=== PATIENT | male | born 1985 | race Caucasian/White ===

== ENCOUNTER → 2022-06-27 | Outpatient (CLI) | payer BC ==
--- NOTE | 2022-06-27 16:07 | CA ---
Transthoracic Echo Report Name: Chu Fitzgerald Age: 36 Gender: M : 1985 Exam Date: 06/27/2022 12:53 Exam Location: [facility] Ht (in): 63 Wt (lb): 186 Ordering Physician: Yuval Narayanan MD Attending/Referring Phys: [id number], Oracio Car Salter Vane Nazario, CHINEDU Procedure CPT: Indications: R00.0 TACHYCARDIA, UNSPECIFIED Cardiac Hx: FAM hx Technical Quality: Good Contrast 1: Total Dose (mL): Contrast 2: Total Dose (mL): MEASUREMENTS (Male / Female) Normal Values 2D ECHO LV Diastolic Diameter PLAX 5.1 cm 4.2 - 5.9 / 3.9 - 5.3 cm LV Systolic Diameter PLAX 3.7 cm IVS Diastolic Thickness 1.3 cm 0.6 - 1.0 / 0.6 - 0.9 cm LVPW Diastolic Thickness 1.4 cm 0.6 - 1.0 / 0.6 - 0.9 cm LV Relative Wall Thickness 0.5 RV Internal Dim ED PLAX 3.0 cm LA Systolic Diameter LX 3.8 cm 3.0 - 4.0 / 2.7 - 3.8 cm LV Diastolic Volume MOD 4C 100.5 cm??? LV Systolic Volume MOD 4C 51.8 cm??? LV Ejection Fraction MOD 4C 48.4 % LV Diastolic Length 4C 8.4 cm LV Systolic Length 4C 6.9 cm LV Diastolic Volume MOD 2C 77.5 cm??? LV Systolic Volume MOD 2C 46.2 cm??? LV Ejection Fraction MOD 2C 40.4 % LV Diastolic Length 2C 7.8 cm LV Systolic Length 2C 6.6 cm LA Volume 48.3 cm??? 18 - 58 / 22 - 52 cm??? M-MODE Aortic Root Diameter MM 3.1 cm MV E Point Septal Separation 1.0 cm AV Cusp Separation MM 2.3 cm DOPPLER AV Peak Velocity 138.3 cm/s AV Peak Gradient 7.7 mmHg MV Area PHT 3.2 cm??? Mitral E Point Velocity 73.9 cm/s Mitral A Point Velocity 89.6 cm/s Mitral E to A Ratio 0.8 MV Deceleration Time 233.9 ms MV E' Velocity 8.1 cm/s Mitral E to MV E' Ratio 9.1 TR Peak Velocity 246.5 cm/s TR Peak Gradient 24.3 mmHg Right Ventricular Systolic Press 28.6 mmHg FINDINGS Left Ventricle Left ventricular ejection fraction is estimated at 45 %. Left ventricular cavity size normal.Mild concentric left ventricular hypertrophy. Mildly reduced global left ventricular systolic function. Right Ventricle Normal right ventricular size and function. Right ventricular systolic pressure within normal limits. Right Atrium Normal right atrial size. Left Atrium Normal left atrial size. Mitral Valve Structurally normal mitral valve. Trace to mild mitral regurgitation. Aortic Valve Trileaflet aortic valve. No aortic valve stenosis or regurgitation. Tricuspid Valve Structurally normal tricuspid valve. Mild tricuspid regurgitation. Pulmonic Valve Structurally normal pulmonic valve. No pulmonic regurgitation. Pericardium Normal pericardium. No pericardial effusion. Aorta Normal size aortic root and proximal ascending aorta. CONCLUSIONS Reduced LV systolic function, ejection fraction 45% Previewed by: Dr. Aldair Suarez MD (Electronically Signed) Final Date: 27 June 2022 16:06
== END | disposition home or self-care (01) ==
LOC: RADECHMAIN 12:33
PROVIDERS: ATTEND Family Medicine
DX: R00.0 Tachycardia, unspecified (principal)
CPT/HCPCS: 93306

== ENCOUNTER → 2023-01-11 | Outpatient (CLI) | payer BC ==
--- NOTE | 2023-01-12 13:44 | MR ---
EXAMINATION TYPE: MR lumbar spine wo con DATE OF EXAM: 01/11/2023 COMPARISON: HISTORY: Low back pain into left side CONTRAST: 0 mL intravenous Gadavist. TECHNIQUE: Multiplanar, multisequence images of the lumbar spine were acquired. FINDINGS: Cord terminates at the L1 level. There is some disc desiccation L2-L3. Remaining discs have normal hydration. Disc heights are preserv ed. Vertebral body heights are preserved. Superior endplate Schmorl's node is present L3. Tiny Schmor l's node may be present in the superior endplate of L5. No significant disc bulging or focal disc herniation is evident. No spinal canal stenosis or neural f oraminal stenosis is evident. IMPRESSION: 1. Disc desiccation L2-L3. 2. Schmorl's node formation noted L3 and possibly L5.
== END | disposition home or self-care (01) ==
LOC: RADMRIMAIN 10:11
PROVIDERS: ATTEND Family Medicine
DX: M51.46 Schmorl's nodes, lumbar region (principal); M51.36 Other intervertebral disc degeneration, lumbar region
CPT/HCPCS: 72148

== ENCOUNTER → 2023-12-15 | Outpatient (CLI) | payer BC ==
--- NOTE | 2023-12-15 14:56 | CT ---
CT right ankle without contrast HISTORY: Contusion right leg. COMPARISON: None TECHNIQUE: Multiple axial images are obtained to the right ankle without contrast. FINDINGS: The osseous structures are intact and there is no fracture, dislocation or focal intraosseous abnorma lity. The ankle mortise is intact. There is mild focal soft tissue edema in the distal medial third o f the leg. IMPRESSION: No osseous or intra-articular abnormality. Soft tissue abnormality suspected above. No radiopaque for eign body. [facility], Workstation: [id number] 12/15/2023 2:54 PM
== END | disposition home or self-care (01) ==
LOC: RADCTMAIN 14:04
PROVIDERS: ATTEND Family Medicine
DX: S80.11XD Contusion of right lower leg, subsequent encounter

== ENCOUNTER → 2024-06-02 | Outpatient (CLI) | payer BC ==
--- NOTE | 2024-06-03 16:12 | MR ---
EXAMINATION TYPE: MR shoulder LT wo con DATE OF EXAM: 06/02/2024 8:27 PM COMPARISON: None. CLINICAL INDICATION: Male, 38 years old with history of M25.512; PHH, Left shoulder pain and numbness , Lt hand turns red and difficult to rotate TECHNIQUE: Multi planar, multi sequence imaging was performed of the shoulder including: Axial and coronal erin n density fat-saturated sequences, T2 fat-saturated sagittal sequence, and T1-weighted imaging. No G adolinium was given. Left shoulder pain and numbness, Lt hand turns red and difficult to rotate FINDINGS: Supraspinatus tendon: Increased signal within the tendon near its insertion. Infraspinatus tendon: Intact Subscapularis tendon: Intact Teres minor tendon: Intact Long head biceps tendon: Intact, appropriately positioned within the bicipital groove. Normal ins ertion at the bicipital anchor. Acromioclavicular joint: Normal joint space and alignment. Normal subacromial space. No effusio n. Glenohumeral joint: Normal joint space and alignment. Normal articular cartilage. No effusion. Glenoid labrum: Increased signal within the labrum extending anterior to posterior superiorly. Labral cyst in the posterior aspect of the upper labrum compatible with sequela of known SLAP tear. Muscle volume: Normal. Bone marrow: Cystic change in the humeral head and insertion of the rotator cuff. Soft tissues: Unremarkable. Joint/bursal fluid: None IMPRESSION: 1. Superior labral SLAP tear 2. Supraspinatus and subscapularis insertional tendinosis. [facility], , 06/03/2024 4:09 PM
== END | disposition home or self-care (01) ==
LOC: RADMRIMAIN 20:15
PROVIDERS: ATTEND Family Medicine
DX: M25.512 Pain in left shoulder (principal); M67.814 Other specified disorders of tendon, left shoulder

== ENCOUNTER → 2024-08-20 | Outpatient (CLI) | payer BC ==
--- NOTE | 2024-08-20 09:27 | XR ---
EXAMINATION TYPE: XR chest 2V DATE OF EXAM: 08/20/2024 9:23 AM COMPARISON: None. CLINICAL INDICATION: Male, 38 years old with history of Z01.818 ENCOUNTER FOR OTHER PREPROCEDURAL EXA MINATION, TECHNIQUE: XR chest 2V view(s) obtained. FINDINGS: The heart size is normal. The pulmonary vasculature is normal. The lungs are clear. IMPRESSION: 1. No acute pulmonary process. [facility], , 08/20/2024 9:25 AM
[2024-08-20 09:34] LABS: Prothrombin Time 10.6 sec (10.0-12.5)
[2024-08-20 15:38] LABS: BUN/Creat Ratio 9.33 Ratio (12.00-20.00); Basophils # (A) 0.08 X 10*3/uL (0.00-0.10); Basophils % (A) 0.9 %; Blood Urea Nitrogen 8.4 mg/dL (9.0-27.0); Calcium 9.4 mg/dL (8.7-10.3); Carbon Dioxide 25.2 mmol/L (21.6-31.8); Chloride 105 mmol/L (96-109); Eosinophils # (A) 0.27 X 10*3/uL (0.04-0.35); Eosinophils % (A) 3.1 %; Glucose 105 mg/dL (70-110); HCT 48.5 % (39.6-50.0); Lymphocytes # (A) 2.63 X 10*3/uL (0.90-5.00); Lymphocytes % (A) 30.2 %; MCH 27.9 pg (27.0-32.0); MCV 84.5 FL (80.0-97.0); Mean Platelet Volume 11.4 FL (9.5-12.2); Monocytes # (A) 0.85 X 10*3/uL (0.20-1.00); Monocytes % (A) 9.8 %; NRBC Per 100 WBC 0 X 10*3/uL (0.00-0.01); Neutrophils # (A) 4.84 X 10*3/uL (1.80-7.70); Neutrophils % (A) 55.5 %; Platelet Count 265 X 10*3/uL (140-440); RBC 5.74 X 10*6/uL (4.40-5.60); RDW 12.9 % (11.5-14.5); Sodium 143 mmol/L (135-145); WBC 8.71 X 10*3/uL (4.50-10.00)
[2024-08-20 16:05] LABS: Appearance,Urine Turbid (Clear); Bilirubin,Urine Negative (Negative); Blood,Urine Negative (Negative); Color,Urine Yellow (Yellow); Ketones,Urine Negative (Negative); Nitrite,Urine Negative (Negative); PH, Urine 5.5; Specific Gravity,Urine 1.023 (1.001-1.030); Urobilinogen,Urine 0.2 E.U./DL
[2024-08-20 16:11] LABS: Bacteria,Urine None Seen (None Seen)
== END | disposition home or self-care (01) ==
LOC: LABPAT 08:54
PROVIDERS: ATTEND Orthopaedic Surgery Orthopaedic Surgery of the Spine
DX: Z01.812 Encounter for preprocedural laboratory examination (principal); Z22.322 Carrier or suspected carrier of Methicillin resistant Staphylococcus aureus; M48.02 Spinal stenosis, cervical region
CPT/HCPCS: 71046; 80048; 81001; 85025; 85610; 85730; 86850; 86900; 86901; 87070

== ENCOUNTER 2024-09-01 08:56 | Inpatient (IN) | payer BC ==
[2024-08-26 14:25] VITALS: BMI 40.2
[2024-09-01] MEDS: IV FLUID CONTINUATION 1,000 ML IV ONE (09:25)
[2024-09-01 10:04] LABS: Glucose,Whole Blood 103 mg/dL (70-110)
[2024-09-01] MEDS: MIDAZOLAM 2 MG/2 ML VIAL IV ONE (10:15)
[2024-09-01] MEDS: ONDANSETRON 4 MG/2 ML VIAL IVP ONE (10:19)
[2024-09-01] MEDS ORDERED: KETAMINE HCL IN 0.9 % NACL 50 MG/5 ML SYRINGE ONE (12:19)
[2024-09-01] MEDS ORDERED: ROCURONIUM 10 MG/ML (5 ML VIAL) IV ONE (12:19)
[2024-09-01] MEDS ORDERED: GLYCOPYRROLATE 0.2 MG/ML 2 ML VIAL ONE (12:19)
[2024-09-01] MEDS ORDERED: VASOPRESSIN 20 UNIT/ML 1 ML VIAL ONE (12:19)
[2024-09-01] MEDS ORDERED: NEOSTIGMINE 1 MG/ML 10 ML VIAL ONE (12:19)
[2024-09-01] MEDS ORDERED: PHENYLEPHRINE-0.9% NACL SYG 1,000 MCG/10 ML SYRINGE ONE (12:19)
[2024-09-01] MEDS ORDERED: MIDAZOLAM 2 MG/2 ML VIAL ONE (12:19)
[2024-09-01] MEDS ORDERED: PROPOFOL 10 MG/ML 20 ML VIAL IV ONE (12:19)
[2024-09-01] MEDS ORDERED: fentaNYL (PF) 50 MCG/ML 2 ML AMP ONE (12:19)
[2024-09-01] MEDS: ceFAZolin 1,000 MG in SODIUM CHLORIDE 0.9% IRRIGATIO 1,000 ML IRRIGATION PRN (12:24)
[2024-09-01] MEDS: ceFAZolin 2 GM in DEXTROSE 5% IN WATER 50 ML IVPB PRN (12:24)
[2024-09-01] MEDS: BUPIVACAINE (PF) 0.5% 30 ML VIAL SQ ONE (12:57)
[2024-09-01] MEDS: LIDOCAINE 2%-EPI 1:100,000 20 ML VIAL SQ ONE (12:57)
[2024-09-01] MEDS: THROMBIN (BOVINE) 5,000 UNIT VIAL TOPICAL ONE (13:09)
--- NOTE | 2024-09-01 13:50 | XR ---
EXAMINATION TYPE: XR cervical spine 1V DATE OF EXAM: 09/01/2024 1:28 PM COMPARISON: None CLINICAL INDICATION: Male, 38 years old with history of NEEDLE PLACEMENT; PHH, pain TECHNIQUE: XR cervical spine 1V, (1-2) views of the cervical spine FINDINGS: Needle placed at C5-C6. Endotracheal tube placement and the airway. The osseous structures show normal alignment without evidence of an acute fracture. There are osteoph ytes noted throughout the cervical spine on the anterior and lateral aspects of the vertebral bodies. The intervertebral disk spaces are narrowed at multiple levels Pedicles are intact. Soft tissues ar e within normal limits. The odontoid appears intact. IMPRESSION: 1. No fracture or dislocation. 2. Needle placed at C5-C6. [facility], , 09/01/2024 1:48 PM
[2024-09-01] MEDS: LACTATED RINGERS 1,000 ML IV ONE (14:30)
[2024-09-01] MEDS ORDERED: HYDROmorphone 0.5 MG/0.5 ML SYRINGE IVP PRN (15:10)
[2024-09-01] MEDS ORDERED: CYCLOBENZAPRINE 10 MG TAB PO PRN (15:10)
[2024-09-01] MEDS ORDERED: HYDROcodone/APAP 5-325MG 1 EACH TAB PO PRN (15:10)
[2024-09-01] MEDS ORDERED: HYDROmorphone 1 MG/ML 1 ML SYRINGE IVP PRN (15:10)
[2024-09-01] MEDS ORDERED: methocarbamoL 750 MG TAB PO PRN (15:12)
--- NOTE | 2024-09-01 15:17 | P.OP ---
Date of Procedure: 09/01/24 Preoperative Diagnosis: Cervical spine stenosis, herniated nucleus pulposus C4-5 C5-6 C6-7, upper extremity radiculopathy, upper extremity weakness Postoperative Diagnosis: Same Anesthesia: GETA Pathology: none sent Condition: stable Disposition: PACU Description of Procedure: BRIEF OPERATIVE NOTE Preoperative Diagnosis: Postoperative Diagnosis:Cervical spine stenosis, herniated nucleus pulposus C4-5 C5-6 C6-7, upper extremity radiculopathy, upper extremity weakness Procedure: Anterior cervical decompression with discectomy and fusion C4-5 C5-6 C6-7 Placement of interbody graft C4-5 C5-6 C6-7 Application of anterior cervical plate C4-5-6 and 7 Surgeon: Dr. Hedrick Assurance Senior Manager Insurance: Waqas KIMBROUGH who is present throughout the entire the case persistence during positioning, dissection, exposure, visualization, and all crucial elements of the case as well as closure. Anesthesia: General anesthesia per Dr. Christopher Gregorio Estimated blood loss: Approximately 100 cc Complications: None apparent Components implanted: K2M Gallion anterior cervical plate system with screws and Vikos interbody allograft bone graft with 1 cc of DBX bone putty Disposition: To recovery room in good stable condition. OPERATIVE INDICATIONS The patient has had long-standing issues in their neck and upper extremities. He was found to have evidence of significant stenosis at multiple levels in his cervical spine. This correlated well with his neck and upper extremity symptoms. There is severe stenosis with disc herniation at multiple levels. He has been through a number of conservative management modalities without any prolonged benefit. He felt he was having worsening symptoms despite conservative care. We discussed possibly of surgical intervention and the possibly decompression with fusion at his cervical spine. The patient has been through conservative treatment. We discussed various treatment options including surgery, and the patient wishes to proceed with surgery We discussed the risk, patient's alternatives and benefits of surgery including but not limited to, risk of bleeding risk of infection, risk of need for further surgery, risk of decreased, loss of motion, muscle function, malunion nonunion, hardware failure, nerve damage, paralysis, heart attack, and . OPERATIVE SUMMARY After discussing all the risks, patient alternatives and benefits at length, the patient elected to proceed with surgical intervention, signed informed consent, and presented for their procedure. The patient was seen and examined in the preoperative holding area and the surgical site was marked. The patient was given antibiotics and brought to the operating room. The patient was positioned on the operating room table in a supine position being careful to pad any bony prominences and pressure points. The patient was sedated and intubated by anesthesia in standard fashion. Once the airway and C- spine were stabilized the patient's arms were padded and tucked at her side, with her shoulders gently taped. The head was placed in a donut pad with the neck in good neutral alignment and position. We were careful to maintain the patient's cervical spine and good neutral alignment and position throughout. The patient was prepped and draped in a normal standard fashion. An appropriate timeout and keystone protocol performed. We were able to proceed with the surgery. The local wound area was infiltrated with local anesthetic. An incision was made transversely approximately 2-1/2 cm over the appropriate levels on the right at C5. Dissection was taken down subcutaneously to the level of the platysma which was split in line with its fibers. Dissection was taken with a carotid approach, with the trachea and esophagus medial and the carotid sheath laterally. We dissected down to the anterior surface of the vertebral bodies. Intraoperative x-ray was taken which showed a marker at the appropriate level at C5-6. With the appropriate level positively confirmed, we were able to proceed with discectomy at the appropriate levels. All of the operative levels were exposed appropriately. The patient had all their twitches back, and there was no evidence of recurrent laryngeal issue. The wound was copiously irrigated and suctioned dry as had been done periodically throughout the case. At the appropriate level/levels, starting at C4-5 and then moving to see 5 6 and then to C6-7 similarly I established an annulotomy with an 11 blade scalpel. A discectomy was performed with a combination of pituitary rongeurs, curettes, a high-speed bur, and Kerrison rongeurs. The posterior longitudinal ligament was taken down as were any posterior osteophytes. This gave good central and bilateral foraminal decompression. There is large disc herniation at each level and the decompression and discectomy removed the herniation as well as any posterior osteophytes to get excellent central and bilateral celestino inal decompression. There is no evidence of any dural tear or leak. The endplates were prepared with a high-speed bur. With the endplates in good parallel position, I was able to size for the appropriate size interbody graft. The wound was irrigated and suctioned dry the graft was prepared and malleted into position. It had good alignment and position with the anterior surface flush with the anterior surface of the vertebral bodies. This was done similarly the appropriate levels first at C4-5 and then at C5-6 and then at C6- 7. With the grafts intact, I was able to measure and contour and appropriate sized plate. The plate was positioned at the midline over the appropriate levels from C4-C7. Screw holes were established with a hand drill and drill guide. Screws were placed in good alignment and position with excellent bony purchase. They were seated under the locking device. The construct was checked and found to be stable. Intraoperative x-ray was taken which showed good alignment and position of the implants at the appropriate levels. There was no evidence of any dural tear or leak. Good hemostasis was maintained. The wound was copiously irrigated and suctioned dry as had been done periodically throughout the case. The platysma was closed with absorbable suture. The subcutaneous tissue was closed. The subcuticular tissue was closed with absorbable suture. The wound was cleaned and dried and dressed appropriately. A soft cervical collar was placed appropriately. The patient was woken up by anesthesia, extubated, transferred back gently to their hospital bed and brought to the recovery room in good stable condition. The patient will be admitted to the hospital for appropriate postoperative care, medical management and monitoring. We will continue to follow them closely about the postoperative course.
--- NOTE | 2024-09-01 15:23 | XR ---
EXAMINATION TYPE: XR cervical spine 1V DATE OF EXAM: 09/01/2024 2:52 PM COMPARISON: 09/01/2024. CLINICAL INDICATION: Male, 38 years old with history of HARDWARE PLACEMENT; PHH, pain TECHNIQUE: XR cervical spine 1V, (1-2) views of the cervical spine FINDINGS/IMPRESSION: Fixation hardware in place. Mild degeneration changes of the spine. Fixation hardware seen at C4 C5 C 6 and possibly C7. Shoulder limits evaluation on lateral view. No evidence for fracture. [facility], , 09/01/2024 3:21 PM
[2024-09-01] MEDS: HYDROmorphone 0.5 MG/0.5 ML SYRINGE IVP PRN (15:41)
[2024-09-01] MEDS ORDERED: ceFAZolin 3 GM in SODIUM CHLORIDE 0.9% 100 ML IVPB SCH (16:00)
[2024-09-01] MEDS: SODIUM CHLORIDE 0.9% 1,000 ML IV SCH (16:32)
[2024-09-01] MEDS: SODIUM CHLORIDE 0.9% 1,000 ML IV ONE (16:53)
[2024-09-01] MEDS: ONDANSETRON 4 MG/2 ML VIAL IVP PRN (17:07)
[2024-09-01] MEDS: DEXAMETHASONE SOD PHOSPHATE 4 MG/ML 1 ML VIAL IV ONE (18:22)
[2024-09-01] MEDS: LACTATED RINGERS 1,000 ML IV SCH (18:22)
[2024-09-01] MEDS: ACETAMINOPHEN TAB 325 MG TAB PO SCH (18:25)
[2024-09-01] MEDS: traMADol 50 MG TAB PO PRN (21:23)
[2024-09-01] MEDS: ceFAZolin 2 GM in DEXTROSE 5% IN WATER 50 ML IVPB SCH (21:23)
[2024-09-01] MEDS: BENZOCAINE/MENTHOL LOZENG 1 EACH LOZENGE MUCOUS MEM PRN (21:24)
[2024-09-02 07:41] VITALS: BP 116/76; PULSE 69; RESP 16; TEMP 98.8
[2024-09-02] MEDS: amLODIPine 10 MG TAB PO SCH (08:47)
[2024-09-02] MEDS: LOSARTAN 50 MG TAB PO SCH (08:47)
[2024-09-02] MEDS: hydroCHLOROthiazide 25 MG TAB PO SCH (08:47)
[2024-09-02] MEDS: SENNOSIDES-DOCUSATE SODIUM 1 EACH TAB PO SCH (08:47)
--- NOTE | 2024-09-02 11:11 | P.DS ---
Providers Date of admission: 09/01/24 08:56 Expected date of discharge: 09/02/24 Attending physician: Naomy Hedrick Primary care physician: Yuval Narayanan - Discharge Diagnosis(es) (1) Status post cervical spinal fusion Current Visit: Yes Status: Acute (2) Upper extremity weakness Current Visit: Yes Status: Acute (3) Radiculopathy affecting upper extremity Current Visit: Yes Status: Acute (4) Cervical spinal stenosis Current Visit: Yes Status: Acute (5) Cervical herniated disc Current Visit: Yes Status: Acute (6) Hypertension Current Visit: Yes Status: Acute Hospital Course: This is a pleasant 38-year-old male who presented with C4-5, C5-6, and C6-7 cervical spinal stenosis, herniated nucleus pulposus, upper extremity radiculopathy, and upper extremity weakness who failed outpatient conservative therapy. He was admitted for an C4-5, C5-6, and C6-7 anterior cervical decompression and fusion. The patient tolerated the procedure well and did well postoperatively. Significantly better postoperatively. He has good range of motion of the upper extremities. He is not experiencing any significant upper extremity radiculopathy symptoms. His upper extremity symptoms were severe prior to surgical intervention. He does have some hoarseness in his voice and some soreness with swallowing but is able to drink and swallow softer foods. He is using his soft collar. He does feel he is ready for discharge home today. His pain has been well-controlled. Condition on day of discharge stable. Patient will be discharged home. Patient was cleared preoperatively for surgery by Dr. Nir Narayanan Patient currently denies any nausea, vomiting, fever, or chills. Patient is eating and voiding freely without difficulty. Patient may shower Optifoam dressing intact. Patient may remove Optifoam dressing in 3 days and shower without a dressing at that time. Patient should refrain from driving until at least after their first follow-up appointment in the office. Patient should av oid excessive neck flexion, extension, rotation, and lateral sidebending; no overhead lifting; no lifting greater than 10 pounds. MAPS has been reviewed today, 09/02/2024, with an Overall Overdose Risk Score of 380. An "Opiod Start Talking" Form has been signed and placed in the patient's chart. A prescription has been written for 5 mg / 325 mg, 1 tab, every 6 hours, as needed for acute pain, dispense #28. Prescription also written for Senokot- S, 1 tab, twice daily, as needed for constipation, dispense #60. Prescriptions are sent to the patient's pharmacy per request of the patient. He will hold Tramadol while taking hydrocodone. He may continue with methocarbamol as previously prescribed. Patient's other medical diagnoses include hypertension. Physical Exam on day of discharge: Patient is awake, alert, and oriented 3 Vital signs stable Good chest excursion with deep inspiration and expiration Abdomen nontender No signs or symptoms of DVT; no calf pain Adequate range of motion of the cervical spine with adequate flexion, extension, and bilateral rotation Assistant Professor Of Biology strength, thumb strength, interosseous strength, biceps strength, triceps strength, and shoulder strength positive sustained bilaterally Soft cervical collar intact Procedures: C4-5, C5-6, and C6-7 anterior cervical decompression and fusion Patient Condition at Discharge: Stable Plan - Discharge Summary Discharge Rx Participant: No New Discharge Prescriptions: New HYDROcodone/APAP 5-325MG [Goff 5] 1 each PO Q6HR PRN #28 tab PRN Reason: Pain Sennosides-Docusate Sodium [Senokot-S] 1 tab PO BID PRN #60 tablet PRN Reason: Constipation No Action Naproxen [Naprosyn] 500 mg PO DIRECTED PRN PRN Reason: Pain traMADol HCL 50 mg PO Q6H PRN PRN Reason: Pain methocarbamoL [Robaxin-750] 750 mg PO DIRECTED PRN PRN Reason: Muscle Spasm amLODIPine [Norvasc] 10 mg PO DAILY Losartan Potassium 100 mg PO DAILY hydroCHLOROthiazide 25 mg PO DAILY Discharge Medication List Losartan Potassium 100 mg PO DAILY 08/26/24 [History] Naproxen [Naprosyn] 500 mg PO DIRECTED PRN 08/26/24 [History] amLODIPine [Norvasc] 10 mg PO DAILY 08/26/24 [History] hydroCHLOROthiazide 25 mg PO DAILY 08/26/24 [History] methocarbamoL [Robaxin-750] 750 mg PO DIRECTED PRN 08/26/24 [History] traMADol HCL 50 mg PO Q6H PRN 08/26/24 [History] HYDROcodone/APAP 5-325MG [Goff 5] 1 each PO Q6HR PRN #28 tab 09/02/24 [Rx] Sennosides-Docusate Sodium [Senokot-S] 1 tab PO BID PRN #60 tablet 09/02/24 [Rx] Follow up Appointment(s)/Referral(s): Waqas Bond, [place] [PHYSICIAN COMMERCIAL ADMINISTRATOR] - 2 Weeks (Patient may follow-up with Waqas Bond PA-C or Dr. Adalberto Hedrick at [facility] as currently scheduled following discharge. ) Activity/Diet/Wound Care/Special Instructions: 1. Patient may shower with Optifoam dressing intact. 2. Patient may remove Optifoam dressing in 3 days and shower without a dressing at that time. 3. Patient may wear soft cervical collar for comfort support as needed. 4. Patient should refrain from driving until at least after their first follow- up appointment in the office. 5. Patient should avoid excessive cervical flexion, extension, and side bending; avoid overhead lifting; no lifting greater than 10 pounds 6. Take medications as prescribed 7. Patient should avoid anti-inflammatory medications over the next 6 weeks postoperatively 8. Do not soak in tub Discharge Disposition: HOME SELF-CARE
== END 2024-09-02 12:40 | disposition home or self-care (01) | DRG 473 ==
LOC: 2ORMAIN 08:56 → 4SSUR 15:48
PROVIDERS: ADMIT Orthopaedic Surgery Orthopaedic Surgery of the Spine; ATTEND Orthopaedic Surgery Orthopaedic Surgery of the Spine
PROC: 0RT30ZZ Resection of Cervical Vertebral Disc, Open Approach (ICD-10-PCS; 2024-09-01)
PROC: 0RG20A0 Fusion of 2 or more Cervical Vertebral Joints with Interbody Fusion Device, Anterior Approach, Anterior Column, Open Approach (ICD-10-PCS; principal; 2024-09-01 11:00)
DX: M48.02 Spinal stenosis, cervical region (principal); I10 Essential (primary) hypertension; M50.221 Other cervical disc displacement at C4-C5 level; M50.222 Other cervical disc displacement at C5-C6 level; M50.223 Other cervical disc displacement at C6-C7 level; Z79.899 Other long term (current) drug therapy; Z88.1 Allergy status to other antibiotic agents; Z88.0 Allergy status to penicillin
CPT/HCPCS: 72020